=== PATIENT | female | born 1970 | race Caucasian/White ===

== ENCOUNTER 2018-08-07 15:58 | Emergency (ER) | payer MEDICAID, OTHER ==
[~2018-08-07] VITALS: Ht 160 cm; Wt 60.0 kg
[2018-08-07] MEDS ORDERED: SODIUM CHLORIDE 0.9% 1,000 ML IV ONE (22:57)
[2018-08-07 23:41] LABS: BASOPHILS % 0.3 % (0.0-2.0); EOSINOPHILS % 1.3 % (0.0-5.0); HEMATOCRIT. 40.1 % (36.0-48.0); LYMPHOCYTES % 31.3 % (20.0-50.0); MEAN CORPUSCULAR HEMOGLOBIN 30.6 pg (28.0-32.0); MEAN CORPUSCULAR VOLUME 87.6 fL (81.0-99.0); MEAN PLATELET VOLUME 8.7 fl (7.4-10.4); MONOCYTES % 8.3 % (2.0-8.0); NEUTROPHILS % 58.8 % (40.0-76.0); PLATELET 214 x1000/uL (130-400); RED BLOOD CELL COUNT 4.58 mill/uL (4.2-5.4); RED CELL DISTRIBUTION WIDTH 12.8 % (11.6-14.6)
[2018-08-07 23:46] LABS: CHLORIDE 109 mEq/L (98-107)
[2018-08-08 01:47] VITALS: BP 133/55
== END 2018-08-08 01:50 | disposition home or self-care (01) ==
LOC: ER 16:22
DX: R55 Syncope and collapse (principal); R51 Headache; R42 Dizziness and giddiness; R53.1 Weakness; M54.30 Sciatica, unspecified side
CPT/HCPCS: 36415; 80048; 82962; 85025; 93005; 96360; 99285; J7030